=== PATIENT | female | born 1990 | race Two or more races ===

== ENCOUNTER 2025-09-29 12:38 | Emergency (ER) | payer OTHER ==
[~2025-09-29] VITALS: Ht 157.5 cm; Wt 67.6 kg
[2025-09-29 16:05] LABS: BASO % 0.3 % (0.1-1.2); EOS # 0.12 (0.04-0.54); EOS % 1.7 % (0.7-7.0); LYMPH # 2.65 (1.18-3.74); LYMPH % 37.3 % (19.3-53.1); MEAN PLATELET VOLUME 9.90 fl (9.4-12.4); MONO # 0.44 (0.24-0.82); MONO % 6.2 % (4.7-12.5); NEUT # 3.86 (1.56-6.13); NEUT % 54.2 % (34.0-71.1); RED CELL DISTRIBUTION WIDTH 11.9 % (11.6-14.4)
[2025-09-29 16:26] LABS: INR 1.02
[2025-09-29 16:52] LABS: ALT/SGPT 71 U/L (12-78); AST/SGOT 38 U/L (15-37); BILIRUBIN TOTAL 0.36 mg/dL (0.3-1.2); BUN CREA RATIO 25 (7.0-25.0); CREATININE SERUM 0.55 mg/dL (0.55-1.02); GFR 127.29; GLOBULINA 3.4 G/DL (2.4-3.5); GLUCOSE FASTING 129 mg/dL (65-100); OSMOLALITY SERUM 285 MOSM/KG (275-295)
[2025-09-29 17:34] LABS: URINE APPEARANCE Clear; URINE BILIRRUBIN Negative (NEGATIVE); URINE BLOOD Negative; URINE COLOR Yellow; URINE GLUCOSE Negative (NEGATIVE); URINE KETONE Negative (NEGATIVE); URINE LEUKOCYTE Small; URINE NITRATE Negative; URINE PROTEIN Negative (NEGATIVE); URINE UROBILINOGEN 0.2 E.U./dl
[2025-09-29 17:40] LABS: URINE BACTERIA 240.0 uL (0.0-1933); URINE EPITHELIAL CELLS 11.0 uL (0.0-38.8); URINE RBC 3.8 uL (0.0-20.8); URINE WBC 35.8 uL (0.0-23.2)
[2025-09-29 17:57] LABS: URINE CAST 0.00 uL (0.0-1.40)
[2025-09-29] MEDS ORDERED: MACROBID 100 M100 MG PO (20:12)
[2025-09-29] MEDS ORDERED: PYRIDIUM200 MG PO (20:12)
[2025-09-29] MEDS ORDERED: PEPCID AC20 MG PO (20:12)
== END 2025-09-29 20:21 | disposition home or self-care (01) ==
LOC: ER 12:39
DX: R10.20 Pelvic and perineal pain unspecified side (principal); R30.0 Dysuria; N39.0 Urinary tract infection, site not specified